=== PATIENT | female | born 1975 | race Caucasian/White ===

== ENCOUNTER 2021-11-22 16:55 | Emergency (ER) | payer BC ==
[2021-11-22] MEDS ORDERED: Alum Hydrox/Mag Hydrox/Simeth 15 ML, Lidocaine 2% 15 ML PO ONE ×2 (17:14)
[2021-11-22] MEDS ORDERED: Aspirin 81 MG Tab.Chew PO ONE (17:14)
[2021-11-22 17:50] LABS: ESTIMATED GFR 79 mL/min (>60); TROPONIN I HIGH SENSITIVITY 5.2 pg/mL (<=60.3)
== END 2021-11-22 18:11 | disposition home or self-care (01) ==
LOC: JP.ED 16:55
DX: K21.9 Gastro-esophageal reflux disease without esophagitis (principal)
CPT/HCPCS: 36415; 71045; 80053; 84484; 85025; 93005; 99285; A9270